=== PATIENT | female | born 1965 | race Caucasian/White ===

== ENCOUNTER 2016-07-14 13:57 | Emergency (ER) | payer OTHER ==
[~2016-07-14] VITALS: Ht 172.7 cm; Wt 111.0 kg
[~2016-07-14 13:57] MED LIST: ATOR10 PO; CIPR500T4 PO; IBUP600T26 PO; OMEP20TA39 PO; VITA5000 PO
[2016-07-14 14:07] VITALS: BP 154/86; PULSE 85; RESP 16; TEMP 98; O2SAT 97
[2016-07-14] MEDS ORDERED: SODIUM CHLOR 0.9% 1000 ML INJ 1,000 ML IV SCH (14:32)
--- NOTE | 2016-07-14 14:37 | PD ---
HPI Chief Complaint: GI Complaint Time Seen by Provider: 14:22 Travel History International Travel<30 days: No Contact w/Intl Traveler<30days: No Traveled to known affect area: No History of Present Illness HPI 51-year-old female here for evaluation of left lower quadrant abdominal pain/ left groin pain and rectal pressure. Symptoms have been intermittent for the last several months, worse over the last 6 days. The pain in her left lower quadrant is described as sharp/stabbing, moderate, severe at times, worse with movement and palpation. Patient has had several abdominal surgeries including section, hysterectomy, 2 inguinal hernia repairs on the left, one inguinal hernia repair on the right, perforated bowel during a lysis of adhesion procedure with partial colon resection and reanastomosis at that time. She denies fevers or chills. No nausea or vomiting. She has had normal bowel movements. No urinary symptoms. The patient also reports feeling pressure in her rectum. She denies melena or hematochezia. PFSH Past Medical History Arthritis: Yes Asthma: No Autoimmune Disease: No Heart Rhythm Problems: Yes Cancer: No Cardiovascular Problems: No High Cholesterol: Yes Chemotherapy: No Chest Pain: No Congestive Heart Failure: No COPD: No Cerebrovascular Accident: No Diabetes: No Diminished Hearing: No Endocrine: No Gastrointestinal Disorders: No GERD: Yes Gout: Yes Genitourinary: No Headaches: No Hiatal Hernia: No Hypertension: No Immune Disorder: No Implanted Vascular Access Dvce: No Kidney Stones: No Musculoskeletal: Yes (NECK,BACK) Neurologic: Yes (CHRONIC BACK PAIN) Psychiatric: No Reproductive: No Respiratory: No Immunizations Current: Yes Migraines: No Radiation Therapy: No Renal Failure: No Seizures: No Sickle Cell Disease: No Sleep Apnea: Yes Thyroid Disease: No Ulcer: No ?: Not : 1 Para: 1 Ovarian Cysts: Yes Past Surgical History Abdominal Surgery: Yes (HERNIA REPAIR X 2 LEFT SIDE, RIGHT X 1, LAP FOR SCAR TISSUE ) AICD: No Arteriovenous Shunt: No Body Medical Devices: gout Cardiac Surgery: No Section: Yes Ear Surgery: No Endocrine Surgery: No Eye Surgery: No Gynecologic Surgery: Yes (OVARIAN CYST REMOVED, HYSTERECTOMY 05/15) Hysterectomy: Yes Insulin Pump: No Joint Replacement: No Oral Surgery: No Pacemaker: No Thoracic Surgery: No Tonsillectomy: Yes Other Surgery: Yes (COLON RUPTURE REPAIR) Social History Alcohol Use: No Tobacco Use: No (STATES QUIT AUGUST 2013) Substance Use: No Allergies-Medications (Allergen,Severity, Reaction): Coded Allergies: Penicillin (Verified Allergy, Severe, HIVES, 07/14/16) Reported Meds & Prescriptions Reported Meds & Active Scripts Active Ibuprofen 600 Mg Tab 600 Mg PO Q8H PRN Cipro (Ciprofloxacin HCl) 500 Mg Tab 500 Mg PO BID 7 Days Reported Hm Omeprazole (Omeprazole) 20 Mg Tab 40 Mg PO DAILY Vitamin D-3 (Cholecalciferol) 5,000 Unit Tab 50,000 Unit PO MON AND FRI Lipitor (Atorvastatin Calcium) 10 Mg Tab 40 Mg PO DAILY Review of Systems Except as stated in HPI: all other systems reviewed are Neg Physical Exam Narrative GENERAL: Well-developed, well-nourished, overweight, comfortable, no acute distress. SKIN: Warm and dry. Several well-healed surgical scars over anterior abdomen and inguinal region. HEAD: Atraumatic. Normocephalic. EYES: Pupils equal and round. No scleral icterus. No injection or drainage. ENT: Mucous membranes pink and moist. NECK: Trachea midline. No JVD. CARDIOVASCULAR: Regular rate and rhythm. No murmur appreciated. RESPIRATORY: No accessory muscle use. Clear to auscultation. Breath sounds equal bilaterally. GASTROINTESTINAL: Skin exam as above. Abdomen soft, nondistended. Moderate left lower quadrant tenderness without peritoneal signs. Rest of abdomen is nontender. Normal bowel sounds. RECTUM: Exam performed in the presence of a female nurse. No masses, no fissures, no hemorrhoids. No fluctuance. MUSCULOSKELETAL: No obvious deformities. No clubbing. No cyanosis. No edema. NEUROLOGICAL: Awake and alert. No obvious cranial nerve deficits. Motor grossly within normal limits. Normal speech. PSYCHIATRIC: Appropriate mood and affect; insight and judgment normal. Data Data Last Documented VS Vital Signs Date Time Temp Pulse Resp B/P Pulse Ox O2 Delivery O2 Flow Rate FiO2 07/14/16 16:02 62 16 116/64 97 Room Air 07/14/16 14:07 98.0 Orders Complete Blood Count With Diff (07/14/16 14:32) Comprehensive Metabolic Panel (07/14/16 14:32) Lipase (07/14/16 14:32) Prothrombin Time / Inr (Pt) (07/14/16 14:32) Act Partial Throm Time (Ptt) (07/14/16 14:32) Urinalysis - C+S If Indicated (07/14/16 14:32) Ct Abd/Pel W Iv Contrast(Rout) (07/14/16 14:32) Iv Access Insert/Monitor (07/14/16 14:32) Ecg Monitoring (07/14/16 14:32) Oximetry (07/14/16 14:32) Morphine Inj (Morphine Inj) (07/14/16 14:45) Ondansetron Inj (Zofran Inj) (07/14/16 14:45) Sodium Chlor 0.9% 1000 Ml Inj (Ns 1000 M (07/14/16 14:32) Sodium Chloride 0.9% Flush (Ns Flush) (07/14/16 14:45) Iohexol 350 Inj (Omnipaque 350 Inj) (07/14/16 15:50) Morphine Inj (Morphine Inj) (07/14/16 16:30) Phenazopyridine (Pyridium) (07/14/16 16:30) Labs Laboratory Tests Test 07/14/16 14:45 White Blood Count 10.4 TH/MM3 Red Blood Count 4.62 MIL/MM3 Hemoglobin 13.6 GM/DL Hematocrit 41.4 % Mean Corpuscular Volume 89.5 FL Mean Corpuscular Hemoglobin 29.5 PG Mean Corpuscular Hemoglobin 32.9 % Concent Red Cell Distribution Width 12.8 % Platelet Count 282 TH/MM3 Mean Platelet Volume 8.5 FL Neutrophils (%) (Auto) 79.1 % Lymphocytes (%) (Auto) 15.4 % Monocytes (%) (Auto) 3.4 % Eosinophils (%) (Auto) 0.7 % Basophils (%) (Auto) 1.4 % Neutrophils # (Auto) 8.2 TH/MM3 Lymphocytes # (Auto) 1.6 TH/MM3 Monocytes # (Auto) 0.4 TH/MM3 Eosinophils # (Auto) 0.1 TH/MM3 Basophils # (Auto) 0.1 TH/MM3 CBC Comment DIFF FINAL Differential Comment Prothrombin Time 10.7 SEC Prothromb Time International 1.0 RATIO Ratio Activated Partial 24.3 SEC Thromboplast Time Urine Collection Type CLEAN CATCH Urine Color YELLOW Urine Turbidity CLEAR Urine pH 5.5 Urine Specific [place] 1.024 Urine Protein NEG mg/dL Urine Glucose (UA) NEG mg/dL Urine Ketones NEG mg/dL Urine Occult Blood MOD Urine Nitrite NEG Urine Bilirubin NEG Urine Leukocyte Esterase NEG Urine RBC 10-14 /hpf Urine WBC 3-5 /hpf Urine Squamous Epithelial 6-8 /hpf Cells Urine Bacteria OCC /hpf Urine Mucus FEW /lpf Microscopic Urinalysis Comment CULT NOT INDICATED Urine Collection Time 14:45 Sodium Level 141 MEQ/L Potassium Level 3.8 MEQ/L Chloride Level 105 MEQ/L Carbon Dioxide Level 28.1 MEQ/L Anion Gap 8 MEQ/L Blood Urea Nitrogen 20 MG/DL Creatinine 0.96 MG/DL Estimat Glomerular Filtration 61 ML/MIN Rate Random Glucose 136 MG/DL Calcium Level 8.6 MG/DL Total Bilirubin 0.4 MG/DL Aspartate Amino Transf 18 U/L (AST/SGOT) Alanine Aminotransferase 46 U/L (ALT/SGPT) Alkaline Phosphatase 50 U/L Total Protein 7.2 GM/DL Albumin 3.6 GM/DL Lipase 221 U/L MDM Medical Decision Making Medical Screen Exam Complete: Yes Emergency Medical Condition: Yes Medical Record Reviewed: Yes Differential Diagnosis Diverticulitis, colitis, UTI, cystitis, inguinal hernia, mesenteric ischemia, adhesions, musculoskeletal pain, Narrative Course Vital signs show heart rate 85, blood pressure 154/86, pulse ox 97% on room air , oral temp of 98F. CBC is unremarkable. CMP is unremarkable. Lipase is 221. UA shows moderate occult blood, 10-14 RBCs, 6-8 squamous epithelial cells, occasional bacteria, few mucus, negative nitrites, negative leukocyte esterase, culture not indicated CT abdomen pelvis: CONCLUSION: 1. No acute findings. 2. Hepatomegaly and hepatic steatosis. 3. Atherosclerosis. Patient was made aware of all findings and was provided a copy of all labs and CT abdomen pelvis report. She had some relief with morphine, however her pain seems to be returning. She tells me that she has always had blood in her urine. She could have an interstitial cystitis that is causing her pain. I will give her a prescription for pyridium. She also tells me that she knows that she has an enlarged/fatty liver which is being followed by psychiatric tech. As far as her pelvic/abdominal pain goes, she has had a total abdominal hysterectomy. She does not have any vaginal discharge. She has had several abdominal surgeries and has had a procedure for lysis of adhesions. Her pain could be from adhesions. She is stable for discharge home with outpatient follow-up with a primary care physician this week. She tells me she will contact her primary care physician tomorrow. I will give her the name of the urologist integration engineer with whom to follow-up with as well for her hematuria. She was informed on when to return to the emergency department. She verbalizes understanding and agreement with plan. Diagnosis Primary Impression: Abdominal pain Qualified Code: R10.9 - Abdominal pain, unspecified location Additional Impression: Hematuria Referrals: Pernell Noble MD 1 week Urologist Primary Care Physician 3 days Additional Instructions: Follow-up with your primary care physician this week. Follow-up with urologist Dr. Noble or a urologist of your choice this week regarding the blood in urine. Return to the emergency department for worsening symptoms or any other concerns as discussed. Scripts Phenazopyridine (Pyridium)200 Mg [id number] Mg PO Q8H PRN (DYSURIA) #20 TAB Ref 0 Prov:Mike Bragg MD 07/14/16 Oxycodone-Acetaminophen (Percocet)10-325 mg Tab1 Tab PO Q6H PRN (PAIN) #15 TAB Ref 0 Prov:Mike Bragg MD 07/14/16 Disposition: 01 DISCHARGE HOME Condition: Stable Mike Bragg MD Jul 14, 2016 14:37
[2016-07-14] MEDS ORDERED: SODIUM CHLORIDE 0.9% FLUSH 5 ML FLUSH IVF PRN (14:45)
[2016-07-14] MEDS ORDERED: ONDANSETRON HCL 4 MG/2 ML VIAL IVP ONE (14:45)
[2016-07-14] MEDS ORDERED: MORPHINE SULFATE 4 MG/ML INJ IV PUSH ONE ×2 (14:45→16:30)
[2016-07-14 14:56] LABS: GLUCOSE,URINE NEG (NEG); KETONE, URINE NEG (NEG); NITRITE,URINE NEG (NEG); PH, URINE 5.5 (5.0-8.5)
[2016-07-14 14:59] LABS: AUTOMATED NEUTROPHIL # 8.2 TH/MM3 (1.8-7.7); BASOPHIL # 0.1 TH/MM3 (0-0.2); BASOPHIL % 1.4 % (0.0-2.0); EOSINOPHIL # 0.1 TH/MM3 (0-0.4); EOSINOPHIL % 0.7 % (0.0-4.0); HEMATOCRIT 41.4 % (35.0-46.0); HEMO FLAGS DIFF FINAL; LYMPH % 15.4 % (9.0-44.0); LYMPHOCYTE # 1.6 TH/MM3 (1.0-4.8); MEAN CELL VOLUME 89.5 FL (80.0-100.0); MEAN CORPUSCULAR HEMOGLOBIN 29.5 PG (27.0-34.0); MEAN CORPUSCULAR HGB CONC 32.9 % (32.0-36.0); MONO % 3.4 % (0.0-8.0); NEUT % 79.1 % (16.0-70.0); PLATELET COUNT 282 TH/MM3 (150-450); RED BLOOD COUNT 4.62 MIL/MM3 (4.00-5.30); RED CELL DISTRIBUTION WIDTH 12.8 % (11.6-17.2); WHITE BLOOD COUNT 10.4 TH/MM3 (4.0-11.0)
[2016-07-14 15:00] VITALS: RESP 16; O2SAT 97
[2016-07-14 15:02] VITALS: BP 114/75; PULSE 67; RESP 16; O2SAT 97
[2016-07-14 15:07] LABS: CHLORIDE 105 MEQ/L (98-107); POTASSIUM 3.8 MEQ/L (3.5-5.1); SODIUM (NA) 141 MEQ/L (136-145)
[2016-07-14 15:11] LABS: ANION GAP 8 MEQ/L (5-15); BICARBONATE 28.1 MEQ/L (21.0-32.0); BLOOD UREA NITROGEN 20 MG/DL (7-18); BLOOD, URINE MOD (NEG); METHOD OF COLLECTION CLEAN CATCH; URINE COLOR YELLOW (YELLW/STRAW)
[2016-07-14 15:12] LABS: APTT (PATIENT) 24.3 SEC (24.3-30.1); PROTHROMBIN TIME - PATIENT 10.7 SEC (9.8-11.6)
[2016-07-14 15:13] LABS: ALT (GPT) 46 U/L (10-53); AST (GOT) 18 U/L (15-37); BACTERIA, URINE OCC /hpf; COMMENT (UR) CULT NOT INDICATED; CULTURE IF INDICATED CULT NOT INDICATED; GLOMERULAR FILTRATION RATE 61 ML/MIN (>89); MUCUS URINE FEW /lpf (OCC)
[2016-07-14 15:15] LABS: TOTAL BILIRUBIN ADULT 0.4 MG/DL (0.2-1.0)
[2016-07-14 15:16] LABS: ALKALINE PHOSPHATASE 50 U/L (45-117)
[2016-07-14] MEDS ORDERED: IOHEXOL 350 MG/ML 10 ML VIAL (for RAD DIAG) IV ONE (15:50)
--- NOTE | 2016-07-14 15:59 | RADHPO ---
EXAM DATE/TIME: 07/14/2016 15:33 [facility] COMPARISON: US ABDOMEN - GALLBLADDER, January 04, 2015, 8:56. INDICATIONS : Lower pelvic pain. IV CONTRAST: 67 cc Omnipaque 350 (iohexol) IV ORAL CONTRAST: No oral contrast ingested. RADIATION DOSE: 21.97 CTDIvol (mGy) MEDICAL HISTORY : None SURGICAL HISTORY : Hysterectomy. Inguinal hernia repair. ENCOUNTER: Initial ACUITY: 1 day PAIN SCALE: 3/10 LOCATION: Abdomen. TECHNIQUE: Volumetric scanning of the abdomen and pelvis was performed. Using automated exposure control and ad justment of the mA and/or kV according to patient size, radiation dose was kept as low as reasonably achievable to obtain optimal diagnostic quality images. FINDINGS: There is fatty infiltration of the liver and hepatomegaly. Gallbladder, spleen, pancreas, bilateral a drenal glands, bilateral kidneys are normal in appearance. Atherosclerotic calcifications of the aort a and iliac vessels are seen. Urinary bladder unremarkable. The patient has had previous left inguina l hernia repair. No evidence of bowel obstruction. Appendix normal. Patient is status post hysterecto my. No adnexal masses. No inflammatory changes are seen. There are surgical clips in the retroperiton eum. Osseous structures demonstrate previous intervertebral fusion at L4-5 and L5-S1 with degenerativ e disc disease. Lung bases are clear. CONCLUSION: 1. No acute findings. 2. Hepatomegaly and hepatic steatosis. 3. Atherosclerosis. Mars Booker MD on July 14, 2016 at 15:56 Board Certified Radiologist. This report was verified electronically.
[2016-07-14 16:02] VITALS: BP 116/64; PULSE 62; RESP 16; O2SAT 97
[2016-07-14] MEDS ORDERED: PHENAZOPYRIDINE HCL 200 MG TAB PO ONE (16:30)
[2016-07-14] MEDS ORDERED: PERC10TA27 PO (16:41)
[2016-07-14] MEDS ORDERED: PYRI200T4 PO ×2 (16:41→16:45)
[2016-07-14 17:02] VITALS: BP 122/75; PULSE 64; RESP 16; O2SAT 98
== END 2016-07-14 17:14 | disposition home or self-care (01) ==
LOC: PHED 13:57
DX: R10.32 Left lower quadrant pain (principal); R31.9 Hematuria, unspecified; E78.00 Pure hypercholesterolemia, unspecified; K21.9 Gastro-esophageal reflux disease without esophagitis
CPT/HCPCS: 74177; 80053; 81001; 83690; 85025; 85610; 85730; 96361; 96374; 96375; 96376; 99284; J2270; J2405; J7030; Q9967

== ENCOUNTER 2016-09-10 12:25 | Emergency (ER) | payer OTHER ==
[~2016-09-10] VITALS: Ht 172.7 cm; Wt 106.0 kg
[~2016-09-10 12:25] MED LIST changes: +PERC10TA27 PO; +PYRI200T4 PO
[2016-09-10 12:27] VITALS: BP 169/97; PULSE 97; RESP 17; TEMP 98.4; O2SAT 99
--- NOTE | 2016-09-10 12:37 | PD ---
Physical Exam Time Seen by Provider: 12:35 Narrative 51 y/o female with known hernia presents after tripping on the stairs 2 days ago. She complains of lower abdominal pain since then. Tearing pain. VSS Seen at triage desk. Awaiting bed placement. Data Data Last Documented VS Vital Signs Date Time Temp Pulse Resp B/P Pulse Ox O2 Delivery O2 Flow Rate FiO2 09/10/16 12:27 98.4 97 17 169/97 99 MDM Medical Record Reviewed: Yes Supervised Visit with DEBBIE: No Ranulfo Faustin September 10, 2016 12:36
[2016-09-10] MEDS ORDERED: IBUP800T23 PO (13:18)
[2016-09-10] MEDS ORDERED: CYCL1TAB29 PO (13:18)
[2016-09-10] MEDS ORDERED: PERC5TAB12 PO (13:19)
--- NOTE | 2016-09-10 13:19 | PD ---
HPI Chief Complaint: Abdominal Pain Time Seen by Provider: 13:08 Travel History International Travel<30 days: No Contact w/Intl Traveler<30days: No Traveled to known affect area: No History of Present Illness HPI Patient is a 51-year-old female presented to the emergency department for evaluation of lower abdominal pain. Patient states that she tripped Friday falling up the stairs. When she tripped she felt something "rip"open and her lower abdomen. She reports having 2 left inguinal hernia repairs and one right inguinal hernia repair. She believes the fall has caused a new herniation and presents for evaluation. Patient states that she was evaluated by Dr. Sal cochran her surgeon a week ago and per her report he did not believe that she had a new hernia and her left groin, she states that he told her she had adhesions. She denies any dysuria, back pain, nausea, vomiting, other injuries related to the fall. She reports her pain is 8 out of 10. PFSH Past Medical History Arthritis: Yes Asthma: No Autoimmune Disease: No Heart Rhythm Problems: Yes Cancer: No Cardiovascular Problems: No High Cholesterol: Yes Chemotherapy: No Chest Pain: No Congestive Heart Failure: No COPD: No Cerebrovascular Accident: No Diabetes: No Diminished Hearing: No Endocrine: No Gastrointestinal Disorders: Yes (GERD, HERNIA) GERD: Yes Gout: Yes Genitourinary: No Headaches: No Hiatal Hernia: Yes Hypertension: No Immune Disorder: No Implanted Vascular Access Dvce: No Kidney Stones: No Medical other: Yes (FATTY LIVER) Musculoskeletal: Yes (NECK,BACK) Neurologic: Yes (CHRONIC BACK PAIN) Psychiatric: No Reproductive: No Respiratory: No Immunizations Current: Yes Migraines: No Radiation Therapy: No Renal Failure: No Seizures: No Sickle Cell Disease: No Sleep Apnea: Yes Thyroid Disease: No Ulcer: No ?: Not : 1 Para: 1 Ovarian Cysts: Yes Past Surgical History Abdominal Surgery: Yes (HERNIA REPAIR X 2 LEFT SIDE, RIGHT X 1, LAP FOR SCAR TISSUE ) AICD: No Arteriovenous Shunt: No Body Medical Devices: gout Cardiac Surgery: No Section: Yes Ear Surgery: No Endocrine Surgery: No Eye Surgery: No Gynecologic Surgery: Yes (OVARIAN CYST REMOVED, HYSTERECTOMY 05/15) Hysterectomy: Yes Insulin Pump: No Joint Replacement: No Oral Surgery: No Pacemaker: No Thoracic Surgery: No Tonsillectomy: Yes Other Surgery: Yes (COLON RUPTURE REPAIR) Social History Alcohol Use: No Tobacco Use: No (STATES QUIT AUGUST 2013) Substance Use: No Allergies-Medications (Allergen,Severity, Reaction): Coded Allergies: Penicillin (Verified Allergy, Severe, HIVES, 09/10/16) Reported Meds & Prescriptions Reported Meds & Active Scripts Active Pyridium (Phenazopyridine HCl) 200 Mg Tab 200 Mg PO Q8H PRN Percocet (Oxycodone-Acetaminophen) 10-325 mg Tab 1 Tab PO Q6H PRN Ibuprofen 600 Mg Tab 600 Mg PO Q8H PRN Cipro (Ciprofloxacin HCl) 500 Mg Tab 500 Mg PO BID 7 Days Reported Hm Omeprazole (Omeprazole) 20 Mg Tab 40 Mg PO DAILY Vitamin D-3 (Cholecalciferol) 5,000 Unit Tab 50,000 Unit PO MON AND FRI Lipitor (Atorvastatin Calcium) 10 Mg Tab 40 Mg PO DAILY Review of Systems Except as stated in HPI: all other systems reviewed are Neg HENT: No: Headaches, Neck Pain Cardiovascular: No: Chest Pain or Discomfort Respiratory: No: Shortness of Breath Gastrointestinal: Positive: Abdominal Pain, No: Nausea, Vomiting Musculoskeletal: Positive: Myalgias, Pain Neurologic: No: Dizziness, Focal Abnormalities Physical Exam Narrative GENERAL: Overweight, well-developed, alert female. Resting comfortably in no acute distress. SKIN: Focused skin assessment warm/dry. HEAD: Atraumatic. Normocephalic. EYES: Pupils equal and round. No scleral icterus. No injection or drainage. ENT: No nasal bleeding or discharge. Mucous membranes pink and moist. NECK: Trachea midline. No JVD. CARDIOVASCULAR: Regular rate and rhythm. No murmur appreciated. RESPIRATORY: No accessory muscle use. Clear to auscultation. Breath sounds equal bilaterally. GASTROINTESTINAL: Abdomen soft, non-tender, nondistended. Hepatic and splenic margins not palpable. Left lower abdomen over previous incision site there is a palpable firm area that is noticeable when patient is standing. No herniations noted otherwise. MUSCULOSKELETAL: No obvious deformities. No clubbing. No cyanosis. No edema. NEUROLOGICAL: Awake and alert. No obvious cranial nerve deficits. Motor grossly within normal limits. Normal speech. PSYCHIATRIC: Appropriate mood and affect; insight and judgment normal. Data Data Last Documented VS Vital Signs Date Time Temp Pulse Resp B/P Pulse Ox O2 Delivery O2 Flow Rate FiO2 09/10/16 12:52 18 09/10/16 12:27 98.4 97 169/97 99 [facility] Medical Decision Making Medical Screen Exam Complete: Yes Emergency Medical Condition: Yes Interpretation(s) Vital Signs Date Time Temp Pulse Resp B/P Pulse Ox O2 Delivery O2 Flow Rate FiO2 09/10/16 12:52 18 09/10/16 12:27 98.4 97 17 169/97 99 Differential Diagnosis Muscle strain versus spasm versus adhesions versus hernia versus other Narrative Course Patient is a 51-year-old female presenting to emergency department for evaluation of abdominal pain after tripping and falling upstairs on Friday evening. Abdominal exam is benign, she had a previous workup for a similar complaint on July 14, 2016. At that time there was a CT of the abdomen and pelvis which showed no acute abnormalities, or herniation. Presentation today appears most consistent with a muscle strain. Patient was given prescriptions for a short course of pain medication as well as a muscle relaxer. She is encouraged follow-up with her primary care provider and if needed she can follow up with Dr. Cochran. Patient verbalized understanding of instructions. The patient is stable for discharge. Diagnosis Primary Impression: Strain of abdominal wall Qualified Code: S39.011A - Strain of abdominal wall, initial encounter Referrals: Sal Cochran MD Primary Care Physician Patient Instructions: General Instructions, Muscle Strain (ED) Additional Instructions: Take medications as directed Do not drive or operate machinery while taking narcotic pain medication Follow-up with her primary care provider and/or Dr. Cochran if needed Return to emergency department for any new or worsening symptoms Med/Other Pt SpecificInfo: Prescription(s) given Scripts Ibuprofen 800 Mg [id number] Mg PO Q8H PRN (Pain/Inflammation) 10 Days Ref 0 Prov:Meredith Cobb 09/10/16 Cyclobenzaprine (Flexeril)10 Mg Tab10 Mg PO TID PRN (MUSCLE SPASM) 7 Days Ref 0 Prov:Meredith Cobb 09/10/16 Disposition: 01 DISCHARGE HOME Condition: Stable Meredith Cobb September 10, 2016 13:19
== END 2016-09-10 13:29 | disposition home or self-care (01) ==
LOC: NEPD 12:25
DX: S39.011A Strain of muscle, fascia and tendon of abdomen, initial encounter (principal); E78.00 Pure hypercholesterolemia, unspecified; G47.30 Sleep apnea, unspecified; Z87.39 Personal history of other diseases of the musculoskeletal system and connective tissue; Z86.79 Personal history of other diseases of the circulatory system; Z87.19 Personal history of other diseases of the digestive system; Z87.891 Personal history of nicotine dependence; W10.9XXA Fall (on) (from) unspecified stairs and steps, initial encounter
CPT/HCPCS: 99283

== ENCOUNTER 2017-06-30 16:14 | Emergency (ER) | payer OTHER ==
[~2017-06-30] VITALS: Ht 172.7 cm; Wt 110.4 kg
[~2017-06-30 16:14] MED LIST changes: +CYCL10TA PO; +IBUP1TAB7 PO; +PERC5TAB12 PO
[2017-06-30 16:17] VITALS: BP 145/64; PULSE 95; RESP 16; TEMP 99.2; O2SAT 98
--- NOTE | 2017-06-30 16:31 | PD ---
HPI Chief Complaint: GI Complaint Time Seen by Provider: 16:30 Travel History International Travel<30 days: No Contact w/Intl Traveler<30days: No Traveled to known affect area: No History of Present Illness HPI 52-year-old female came to the emergency room with history of profound diarrhea for past 2 days. Patient says that the diarrhea has been nonstop. Every time she eats or drinks something it just comes out. Right now is watery. Nonbloody. No history of vomiting. She has been getting some chills occasionally. She has been dizzy and seeing white spots in front of her eyes when she stands up. Vital signs were relatively stable. [facility] Past Medical History Narrative Medical Risk of her past medical, surgical, social and family history is reviewed from the nursing note. Arthritis: Yes Asthma: No Autoimmune Disease: No Heart Rhythm Problems: Yes Cancer: No Cardiovascular Problems: No High Cholesterol: Yes Chemotherapy: No Chest Pain: No Congestive Heart Failure: No COPD: No Cerebrovascular Accident: No Diabetes: No (METFORMIN) Diminished Hearing: No Endocrine: No Gastrointestinal Disorders: Yes (GERD, HERNIA) GERD: Yes Gout: Yes Genitourinary: No Headaches: No Hiatal Hernia: Yes Hypertension: No Immune Disorder: No Implanted Vascular Access Dvce: No Kidney Stones: No Musculoskeletal: Yes (NECK,BACK) Neurologic: Yes (CHRONIC BACK PAIN) Psychiatric: No Reproductive: No Respiratory: No Immunizations Current: Yes Migraines: No Radiation Therapy: No Renal Failure: No Seizures: No Sickle Cell Disease: No Sleep Apnea: Yes Thyroid Disease: No Ulcer: No : 1 Para: 1 Ovarian Cysts: Yes Past Surgical History Abdominal Surgery: Yes (HERNIA REPAIR X 2 LEFT SIDE, RIGHT X 1, LAP FOR SCAR TISSUE ) AICD: No Arteriovenous Shunt: No Body Medical Devices: gout Cardiac Surgery: No Section: Yes Ear Surgery: No Endocrine Surgery: No Eye Surgery: No Gynecologic Surgery: Yes (OVARIAN CYST REMOVED, HYSTERECTOMY 05/15) Hysterectomy: Yes Insulin Pump: No Joint Replacement: No Oral Surgery: No Pacemaker: No Thoracic Surgery: No Tonsillectomy: Yes Other Surgery: Yes (COLON RUPTURE REPAIR) Social History Alcohol Use: No Tobacco Use: No (STATES QUIT AUGUST 2013) Substance Use: No Allergies-Medications (Allergen,Severity, Reaction): Coded Allergies: penicillin G (Unverified Allergy, Severe, HIVES, 07/03/17) Comments List of allergies reviewed from the nursing note. Reported Meds & Prescriptions Reported Meds & Active Scripts Active Bactrim DS (Sulfamethoxazole-Trimethoprim) 800-160 Mg Tab 1 Tab PO BID 3 Days Metformin ER (Metformin HCl) 500 Mg Yoshi 500 Mg PO WITH DINNER 30 Days With evening meal Cholestyramine 4 Gm/Pkt Powd 4 Gm PO Q12HR 15 Days 1 packet contains 4 grams of cholestyramine. Flagyl (Metronidazole) 500 Mg Tab 500 Mg PO Q8HR 6 Days Cipro (Ciprofloxacin HCl) 500 Mg Tab 500 Mg PO BID 6 Days Reported Pantoprazole (Pantoprazole Sodium) 40 Mg Tab 40 Mg PO DAILY Narrative Medication List of her home medications reviewed from the nursing note. Review of Systems Except as stated in HPI: all other systems reviewed are Neg Gastrointestinal: Positive: Diarrhea Neurologic: Positive: Dizziness Physical Exam Narrative GENERAL: Awake, alert, moderate distress, anxious SKIN: Focused skin assessment warm/dry. HEAD: Atraumatic. Normocephalic. EYES: Pupils equal and round. No scleral icterus. No injection or drainage. ENT: No nasal bleeding or discharge. Dry mucous membrane. NECK: Trachea midline. No JVD. CARDIOVASCULAR: Regular rate and rhythm. No murmur appreciated. RESPIRATORY: No accessory muscle use. Clear to auscultation. Breath sounds equal bilaterally. GASTROINTESTINAL: Abdomen soft, non-tender, nondistended. Hepatic and splenic margins not palpable. MUSCULOSKELETAL: No obvious deformities. No clubbing. No cyanosis. No edema. NEUROLOGICAL: Awake and alert. No obvious cranial nerve deficits. Motor grossly within normal limits. Normal speech. PSYCHIATRIC: Appropriate mood and affect; insight and judgment normal. Data Data Last Documented VS Orders Orders Basic Metabolic Panel (Bmp) (06/30/17 16:35) Complete Blood Count With Diff (06/30/17 16:35) Iv Access Insert/Monitor (06/30/17 16:35) Ecg Monitoring (06/30/17 16:35) Oximetry (06/30/17 16:35) Sodium Chlor 0.9% 1000 Ml Inj (Ns 1000 M (06/30/17 16:35) Sodium Chloride 0.9% Flush (Ns Flush) (06/30/17 16:45) C Diff Toxin Pcr (06/30/17 16:35) Influenzae A/B Antigen (06/30/17 17:10) Ondansetron Inj (Zofran Inj) (06/30/17 17:15) Acetaminophen (Tylenol) (06/30/17 17:15) Diphenoxylate/Atropine Tab (Lomotil Tab) (06/30/17 18:00) Ed Discharge Order (06/30/17 17:51) Labs Laboratory Tests Test 06/30/17 16:48 06/30/17 17:00 White Blood Count 4.5 TH/MM3 Red Blood Count 5.07 MIL/MM3 Hemoglobin 14.6 GM/DL Hematocrit 44.6 % Mean Corpuscular Volume 88.0 FL Mean Corpuscular Hemoglobin 28.8 PG Mean Corpuscular Hemoglobin Concent 32.7 % Red Cell Distribution Width 12.3 % Platelet Count 255 TH/MM3 Mean Platelet Volume 8.1 FL Neutrophils (%) (Auto) 58.4 % Lymphocytes (%) (Auto) 28.8 % Monocytes (%) (Auto) 10.7 % Eosinophils (%) (Auto) 1.1 % Basophils (%) (Auto) 1.0 % Neutrophils # (Auto) 2.7 TH/MM3 Lymphocytes # (Auto) 1.3 TH/MM3 Monocytes # (Auto) 0.5 TH/MM3 Eosinophils # (Auto) 0.0 TH/MM3 Basophils # (Auto) 0.0 TH/MM3 CBC Comment DIFF FINAL Differential Comment Blood Urea Nitrogen 18 MG/DL Creatinine 0.86 MG/DL Random Glucose 105 MG/DL Calcium Level 8.6 MG/DL Sodium Level 139 MEQ/L Potassium Level 3.7 MEQ/L Chloride Level 107 MEQ/L Carbon Dioxide Level 26.5 MEQ/L Anion Gap 6 MEQ/L Estimat Glomerular Filtration Rate 69 ML/MIN Stool C. difficile Toxin (PCR) NEGATIVE Stl C. difficile Toxin Epiderm 027 PRESUMPTIVE NEGATIVE MDM Medical Decision Making Medical Screen Exam Complete: Yes Emergency Medical Condition: Yes Medical Record Reviewed: Yes Differential Diagnosis Diarrhea, dehydration, electrolyte abnormality Narrative Course 4:54 PM awaiting for the blood test results. Patient is getting IV fluid bolus. 5:39 PM blood test results of back and within normal limits. Stool for C. difficile is pending. Rapid Influenza test is pending as well. Patient will be discharged home eventually. Procedures EKG Prior to Arrival: No Diagnosis Primary Impression: Diarrhea Qualified Codes: R19.7 - Diarrhea, unspecified Additional Impression: Viral illness Referrals: Primary Care Physician Additional Instructions: Eat Khang diet that includes banana, rice, applesauce, tea and toast. Take the medication as per the prescription direction. Return to the ER if condition worsens or any other new concerns. Otherwise follow-up with your primary care. Med/Other Pt SpecificInfo: Prescription(s) given Disposition: 01 DISCHARGE HOME Condition: Stable Germain Isabel MD Jun 30, 2017 16:31
[2017-06-30] MEDS ORDERED: SODIUM CHLOR 0.9% 1000 ML INJ 1,000 ML IV SCH (16:35)
[2017-06-30] MEDS ORDERED: SODIUM CHLORIDE 0.9% FLUSH 10 ML FLUSH IV FLUSH PRN (16:45)
[2017-06-30 17:07] VITALS: O2SAT 96
[2017-06-30 17:15] LABS: BICARBONATE 26.5 MEQ/L (21.0-32.0); CALCIUM 8.6 MG/DL (8.5-10.1)
[2017-06-30] MEDS ORDERED: ACETAMINOPHEN 325 MG TAB PO ONE (17:15)
[2017-06-30] MEDS ORDERED: ONDANSETRON HCL 4 MG/2 ML VIAL IV PUSH ONE (17:15)
[2017-06-30] MEDS ORDERED: PANT40TA3 PO (17:18)
[2017-06-30] MEDS ORDERED: METF500T PO (17:18)
[2017-06-30 17:19] LABS: CREATININE 0.86 MG/DL (0.50-1.00)
[2017-06-30 17:26] LABS: AUTOMATED NEUTROPHIL # 2.7 TH/MM3 (1.8-7.7); EOSINOPHIL % 1.1 % (0.0-4.0); HEMATOCRIT 44.6 % (35.0-46.0); HEMOGLOBIN 14.6 GM/DL (11.6-15.3); LYMPH % 28.8 % (9.0-44.0); LYMPHOCYTE # 1.3 TH/MM3 (1.0-4.8); MEAN CORPUSCULAR HEMOGLOBIN 28.8 PG (27.0-34.0); MEAN CORPUSCULAR HGB CONC 32.7 % (32.0-36.0); MEAN PLATELET VOLUME 8.1 FL (7.0-11.0); MONO % 10.7 % (0.0-8.0); MONOCYTE # 0.5 TH/MM3 (0-0.9); NEUT % 58.4 % (16.0-70.0); PLATELET COUNT 255 TH/MM3 (150-450); RED BLOOD COUNT 5.07 MIL/MM3 (4.00-5.30); RED CELL DISTRIBUTION WIDTH 12.3 % (11.6-17.2); WHITE BLOOD COUNT 4.5 TH/MM3 (4.0-11.0)
[2017-06-30] MEDS ORDERED: LOMO2.5T PO (17:53)
[2017-06-30 18:00] VITALS: BP 140/89; PULSE 92; RESP 16; O2SAT 97
[2017-06-30] MEDS ORDERED: DIPHENOXYLATE/ATROPINE 2.5 MG/0.025 MG TAB PO ONE (18:00)
[2017-06-30 18:31] VITALS: BP 153/77
[2017-06-30 18:38] VITALS: RESP 16
== END 2017-06-30 18:49 | disposition home or self-care (01) ==
LOC: PHED 16:14
DX: R19.7 Diarrhea, unspecified (principal); B34.9 Viral infection, unspecified; E78.00 Pure hypercholesterolemia, unspecified; K21.9 Gastro-esophageal reflux disease without esophagitis; M19.90 Unspecified osteoarthritis, unspecified site; Z87.891 Personal history of nicotine dependence
CPT/HCPCS: 80048; 85025; 87493; 87804; 96361; 96374; 99284; J2405; J7030

== ENCOUNTER 2017-07-03 10:24 | Observation (INO) | payer OTHER ==
[~2017-07-03] VITALS: Ht 172.7 cm; Wt 111.0 kg
[~2017-07-03 10:24] MED LIST changes: -ATOR10 PO; -CIPR500T4 PO; -CYCL10TA PO; -IBUP1TAB7 PO; -IBUP600T26 PO; +LOMO2.5T PO; +METF500T PO; -OMEP20TA39 PO; +PANT40TA3 PO; -PERC10TA27 PO; -PERC5TAB12 PO; -PYRI200T4 PO; -VITA5000 PO
[2017-07-03] MEDS ORDERED: IOHEXOL 350 MG/ML 10 ML VIAL (for RAD DIAG) IVCONTRAST ONE (10:25)
[2017-07-03 10:26] VITALS: BP 138/73; PULSE 71; RESP 16; TEMP 98; O2SAT 99
--- NOTE | 2017-07-03 10:56 | PD ---
HPI Chief Complaint: GI Complaint Time Seen by Provider: 10:33 Travel History International Travel<30 days: No Contact w/Intl Traveler<30days: No Traveled to known affect area: No History of Present Illness HPI This 52-year-old female says she been having diarrhea since Friday. Friday she started having some fever and loose stools. Since then she's been having increasing diarrhea. She says she is passing yellow liquid per rectum. If she eats anything she says she has a bowel movement within 20 minutes. There has not been any vomiting. She was seen in the emergency department on the . At that time that test for C. difficile was done and was negative. She was given Lomotil and has taken 6 tablets at home. She says Lomotil has not helped. He says that in 2009 she had ischemic colitis. She had a perforation of her colon during a laparoscopic procedure. She has had back surgery done through her abdomen in the past. PFSH Past Medical History Arthritis: Yes Asthma: No Autoimmune Disease: No Heart Rhythm Problems: Yes Cancer: No Cardiovascular Problems: No High Cholesterol: Yes Chemotherapy: No Chest Pain: No Congestive Heart Failure: No COPD: No Cerebrovascular Accident: No Diabetes: Yes (METFORMIN) Patient Takes Glucophage: Yes Diminished Hearing: No Endocrine: No Gastrointestinal Disorders: Yes (GERD, HERNIA) GERD: Yes Gout: Yes Genitourinary: No Headaches: No Hiatal Hernia: Yes Heparin Induced Thrombocytopen: No Hypertension: No Immune Disorder: No Implanted Vascular Access Dvce: No Kidney Stones: No Musculoskeletal: Yes (NECK,BACK) Neurologic: Yes (CHRONIC BACK PAIN) Psychiatric: No Reproductive: No Respiratory: No Immunizations Current: Yes Migraines: No Radiation Therapy: No Renal Failure: No Seizures: No Sickle Cell Disease: No Sleep Apnea: Yes Thyroid Disease: No Ulcer: No ?: Not : 1 Para: 1 Ovarian Cysts: Yes Past Surgical History Abdominal Surgery: Yes (HERNIA REPAIR X 2 LEFT SIDE, RIGHT X 1, LAP FOR SCAR TISSUE ) AICD: No Arteriovenous Shunt: No Body Medical Devices: gout Cardiac Surgery: No Section: Yes Ear Surgery: No Endocrine Surgery: No Eye Surgery: No Gynecologic Surgery: Yes (OVARIAN CYST REMOVED, HYSTERECTOMY 05/15) Hysterectomy: Yes Insulin Pump: No Joint Replacement: No Oral Surgery: No Pacemaker: No Thoracic Surgery: No Tonsillectomy: Yes Other Surgery: Yes (COLON RUPTURE REPAIR) Social History Alcohol Use: No Tobacco Use: No (STATES QUIT AUGUST 2013) Substance Use: No Allergies-Medications (Allergen,Severity, Reaction): Coded Allergies: penicillin G (Unverified Allergy, Severe, HIVES, 07/03/17) Reported Meds & Prescriptions Reported Meds & Active Scripts Active Lomotil (Diphenoxylate-Atropine) 2.5-0.025 Mg Tab 1 Tab PO Q6H PRN Reported Metformin (Metformin HCl) 500 Mg Tab 500 Mg PO BIDPC Pantoprazole (Pantoprazole Sodium) 40 Mg Tab 40 Mg PO DAILY Review of Systems General / Constitutional: No: Fever, Chills Eyes: No: Diploplia, Blurred Vision HENT: No: Headaches, Vertigo Cardiovascular: No: Chest Pain or Discomfort, Palpitations Respiratory: No: Cough, Shortness of Breath Gastrointestinal: Positive: Diarrhea Genitourinary: No: Frequency Musculoskeletal: No: Myalgias, Arthralgias Skin: No Rash, No Itching Neurologic: Positive: Weakness, Dizziness, No: Syncope, Focal Abnormalities Endocrine: No: Heat Intolerance Hematologic/Lymphatic: No: Easy Bruising Physical Exam Narrative GENERAL: Well-developed female SKIN: Focused skin assessment warm/dry. HEAD: Atraumatic. Normocephalic. EYES: Pupils equal and round. No scleral icterus. No injection or drainage. ENT: No nasal bleeding or discharge. Mucous membranes pink and moist. NECK: Trachea midline. No JVD. CARDIOVASCULAR: Regular rate and rhythm. No murmur appreciated. RESPIRATORY: No accessory muscle use. Clear to auscultation. Breath sounds equal bilaterally. GASTROINTESTINAL: Abdomen soft, mild diffuse tenderness, no guarding, nondistended. Hepatic and splenic margins not palpable. MUSCULOSKELETAL: No obvious deformities. No clubbing. No cyanosis. No edema. NEUROLOGICAL: Awake and alert. No obvious cranial nerve deficits. Motor grossly within normal limits. Normal speech. PSYCHIATRIC: Appropriate mood and affect; insight and judgment normal. Data Data Last Documented VS Vital Signs Date Time Temp Pulse Resp B/P (MAP) Pulse Ox O2 Delivery O2 Flow Rate FiO2 07/03/17 11:50 68 125/79 (94) 100 07/03/17 10:26 98.0 16 Orders Orders Complete Blood Count With Diff (07/03/17 10:46) Comprehensive Metabolic Panel (07/03/17 10:46) Urinalysis - C+S If Indicated (07/03/17 10:46) Magnesium (Mg) (07/03/17 10:46) Rotavirus Ag Detection (Stool) (07/03/17 10:46) Enteric Path (Stool) (07/03/17 10:46) Ct Abd/Pel W Iv Contrast(Rout) (07/03/17 10:46) Stool Ova And Parasite Screen (07/03/17 10:46) Stool Wbc (Leukocytes) (07/03/17 10:46) Sodium Chlor 0.9% 1000 Ml Inj (Ns 1000 M (07/03/17 11:00) Sodium Chlor 0.9% 1000 Ml Inj (Ns 1000 M (07/03/17 11:00) Urine Culture (07/03/17 11:10) Potassium Chloride (Kcl) (07/03/17 11:45) Iohexol 350 Inj (Omnipaque 350 Inj) (07/03/17 10:25) Ns + Kcl Inj (07/03/17 13:00) Labs Laboratory Tests Test 07/03/17 11:10 White Blood Count 4.4 TH/MM3 Red Blood Count 4.67 MIL/MM3 Hemoglobin 13.8 GM/DL Hematocrit 41.0 % Mean Corpuscular Volume 87.7 FL Mean Corpuscular Hemoglobin 29.5 PG Mean Corpuscular Hemoglobin Concent 33.6 % Red Cell Distribution Width 12.3 % Platelet Count 251 TH/MM3 Mean Platelet Volume 7.8 FL Neutrophils (%) (Auto) 56.7 % Lymphocytes (%) (Auto) 35.3 % Monocytes (%) (Auto) 5.3 % Eosinophils (%) (Auto) 2.3 % Basophils (%) (Auto) 0.4 % Neutrophils # (Auto) 2.5 TH/MM3 Lymphocytes # (Auto) 1.6 TH/MM3 Monocytes # (Auto) 0.2 TH/MM3 Eosinophils # (Auto) 0.1 TH/MM3 Basophils # (Auto) 0.0 TH/MM3 CBC Comment DIFF FINAL Differential Comment Urine Collection Type CLEAN CATCH Urine Color YELLOW Urine Turbidity CLEAR Urine pH 5.5 Urine Specific [place] 1.025 Urine Protein NEG mg/dL Urine Glucose (UA) NEG mg/dL Urine Ketones NEG mg/dL Urine Occult Blood MOD Urine Nitrite NEG Urine Bilirubin NEG Urine Leukocyte Esterase TRACE Urine RBC 0-3 /hpf Urine WBC 3-5 /hpf Urine Squamous Epithelial Cells 0-5 /hpf Urine Bacteria MOD /hpf Urine Granular Casts 0-2 /lpf Urine Mucus MANY /lpf Microscopic Urinalysis Comment CULTURE INDICATED Blood Urea Nitrogen 18 MG/DL Creatinine 0.70 MG/DL Random Glucose 95 MG/DL Total Protein 7.5 GM/DL Albumin 3.5 GM/DL Calcium Level 8.4 MG/DL Magnesium Level 2.2 MG/DL Alkaline Phosphatase 71 U/L Aspartate Amino Transf (AST/SGOT) 48 U/L Alanine Aminotransferase (ALT/SGPT) 111 U/L Total Bilirubin 0.5 MG/DL Sodium Level 141 MEQ/L Potassium Level 3.5 MEQ/L Chloride Level 110 MEQ/L Carbon Dioxide Level 23.8 MEQ/L Anion Gap 7 MEQ/L Estimat Glomerular Filtration Rate 87 ML/MIN [facility] Medical Decision Making Medical Screen Exam Complete: Yes Emergency Medical Condition: Yes Medical Record Reviewed: Yes Differential Diagnosis Differential includes enteritis, colitis, C. difficile Narrative Course Patient was here 2 days ago and had no benefit from Lomotil. A test for C. difficile at that time was negative. We have given IV fluids. She has had 3 episodes of diarrhea while in the emergency department. White count is normal at 4.4. There 56% polys 30% lymphs. AST and ALTs slightly elevated. She does have a history of fatty liver CT scan of the abdomen and pelvis does not show an etiology for the diarrhea Diagnosis Primary Impression: Intractable diarrhea Adolph Gold MD Jul 03, 2017 10:56
[2017-07-03] MEDS ORDERED: SODIUM CHLOR 0.9% 1000 ML INJ 1,000 ML IV ONE ×2 (11:00)
[2017-07-03 11:16] LABS: AUTOMATED NEUTROPHIL # 2.5 TH/MM3 (1.8-7.7); BASOPHIL % 0.4 % (0.0-2.0); EOSINOPHIL # 0.1 TH/MM3 (0-0.4); EOSINOPHIL % 2.3 % (0.0-4.0); HEMOGLOBIN 13.8 GM/DL (11.6-15.3); LYMPH % 35.3 % (9.0-44.0); LYMPHOCYTE # 1.6 TH/MM3 (1.0-4.8); MEAN CELL VOLUME 87.7 FL (80.0-100.0); MEAN CORPUSCULAR HEMOGLOBIN 29.5 PG (27.0-34.0); MEAN CORPUSCULAR HGB CONC 33.6 % (32.0-36.0); MEAN PLATELET VOLUME 7.8 FL (7.0-11.0); MONO % 5.3 % (0.0-8.0); MONOCYTE # 0.2 TH/MM3 (0-0.9); NEUT % 56.7 % (16.0-70.0); PLATELET COUNT 251 TH/MM3 (150-450); RED BLOOD COUNT 4.67 MIL/MM3 (4.00-5.30); RED CELL DISTRIBUTION WIDTH 12.3 % (11.6-17.2); WHITE BLOOD COUNT 4.4 TH/MM3 (4.0-11.0)
[2017-07-03 11:17] LABS: BILIRUBIN, URINE NEG (NEG); BLOOD, URINE MOD (NEG); GLUCOSE,URINE NEG (NEG); KETONE, URINE NEG (NEG); NITRITE,URINE NEG (NEG); PH, URINE 5.5 (5.0-8.5); URINE LEUKOCYTE ESTERASE TRACE (NEG)
[2017-07-03 11:19] LABS: URINE COLOR YELLOW (YELLW/STRAW)
[2017-07-03 11:24] LABS: BACTERIA, URINE MOD /hpf; MUCUS URINE MANY /lpf (OCC); RBC, URINE 0-3 /hpf (0-3); SQUAMOUS EPITHELIAL CELL URINE 0-5 /hpf (0-5)
[2017-07-03 11:29] LABS: CHLORIDE 110 MEQ/L (98-107); SODIUM (NA) 141 MEQ/L (136-145)
[2017-07-03 11:33] LABS: ALBUMIN 3.5 GM/DL (3.4-5.0); BICARBONATE 23.8 MEQ/L (21.0-32.0); BLOOD UREA NITROGEN 18 MG/DL (7-18); CALCIUM 8.4 MG/DL (8.5-10.1); GLUCOSE,RANDOM 95 MG/DL (74-106); MAGNESIUM 2.2 MG/DL (1.5-2.5)
[2017-07-03 11:36] LABS: ALT (GPT) 111 U/L (10-53); AST (GOT) 48 U/L (15-37); GLOMERULAR FILTRATION RATE 87 ML/MIN (>89)
[2017-07-03 11:38] LABS: TOTAL BILIRUBIN ADULT 0.5 MG/DL (0.2-1.0); TOTAL PROTEIN 7.5 GM/DL (6.4-8.2)
[2017-07-03 11:39] LABS: ALKALINE PHOSPHATASE 71 U/L (45-117)
[2017-07-03] MEDS ORDERED: POTASSIUM CHLORIDE 20 MEQ CONTROLLED RELEASE TAB PO ONE (11:45)
[2017-07-03 11:50] VITALS: BP 125/79; PULSE 68; O2SAT 100
--- NOTE | 2017-07-03 12:32 | RADRPT ---
EXAM DATE/TIME: 07/03/2017 12:01 [place] COMPARISON: No previous studies available for comparison. INDICATIONS : Diarrhea for six days, fever. IV CONTRAST: 96 cc Omnipaque 350 (iohexol) IV ORAL CONTRAST: No oral contrast ingested. RADIATION DOSE: 21.74 CTDIvol (mGy) MEDICAL HISTORY : Hernia, hiatal. Gastroesophageal reflux disease. Diabetes mellitus type 2.Ovarian cysts, ischemic col itis. SURGICAL HISTORY : Colon resection. Hysterectomy.Discectomy, lumbar. ENCOUNTER: Initial ACUITY: 4 - 6 days PAIN SCALE: 0/10 LOCATION: Bilateral lower quadrant TECHNIQUE: Volumetric scanning of the abdomen and pelvis was performed. Using automated exposure control and ad justment of the mA and/or kV according to patient size, radiation dose was kept as low as reasonably achievable to obtain optimal diagnostic quality images. DICOM format image data is available electro nically for review and comparison. FINDINGS: Minimal scarring at the lung bases. Moderate fatty liver. Spleen, adrenals, kidneys and pancreas unre markable. No calcified gallstones or biliary ductal dilatation. There is no free fluid. No bowel obstruction. No adenopathy. No acute bony abnormality. Postoperative hysterectomy and previous fusion lower lumbar spine. CONCLUSION: 1. No acute findings on abdomen and pelvic CT. Stable fatty liver. Previous hysterectomy and lumbar s pine fusion Donavan Michaels MD on July 03, 2017 at 12:24 Board Certified Radiologist. This report was verified electronically.
[2017-07-03] MEDS ORDERED: SODIUM CHLORIDE 0.9% FLUSH 10 ML FLUSH IV FLUSH PRN (13:00)
[2017-07-03] MEDS ORDERED: NS + KCL 20 MEQ INJ 1,000 ML IV SCH (13:00)
[2017-07-03] MEDS ORDERED: ACETAMINOPHEN 325 MG TAB PO PRN (13:00)
[2017-07-03] MEDS ORDERED: NALOXONE HCL 0.4 MG/ML AMP IV PUSH PRN (13:00)
[2017-07-03] MEDS ORDERED: SENNOSIDES 8.6 MG TAB PO PRN (13:00)
[2017-07-03] MEDS: SODIUM CHLOR 0.9% 1000 ML INJ 1,000 ML IV SCH ×2 (13:14→22:59)
[2017-07-03 14:54] VITALS: BP 131/83; PULSE 76; O2SAT 100
--- NOTE | 2017-07-03 15:11 | HHI.HP ---
[facility] Service [facility] Primary Care Physician Fito Marroquin MD Admission Diagnosis INTRACTABLE DIARHEA Diagnoses: Chief Complaint: Diarrhea with dizziness Travel History International Travel<30 Days: No Contact w/Intl Traveler <30 Da: No Traveled to Known Affected Are: No History of Present Illness This patient is a very pleasant 52-year-old female with a history of "prediabetes "and recently started metformin. Patient reports increased lightheadedness and dizziness as well as subjective fever with recurrent loose stools. She has stools which are worse at night they are foul-smelling and bulky. There is no bleeding. There is no oiliness. Patient has not any negro fevers. She did come to the emergency room several days ago and a C. difficile test was negative. She does also report a history of ischemic colitis, diverticular disease and multiple bowel surgeries. Patient says that she has not really had any abdominal pain only discomfort due to frequent stools. She has had at least 8 stools in the last 12 hours. She has reported some nausea and dizziness. His chronically elevated LFTs due to fatty liver which has been under follow-up with her framing consultant. Because of the severe diarrhea and dizziness and anorexia the patient is recommended for observation Review of Systems Constitutional: COMPLAINS OF: Dizziness, DENIES: Diaphoretic episodes, Fatigue , Fever, Weight gain, Weight loss, Chills, Change in appetite, Night Sweats Endocrine: DENIES: Abnorml menstrual pattern, Heat/cold intolerance, Polydipsia , Polyuria, Polyphagia Eyes: DENIES: Blurred vision, Diplopia, Eye inflammation, Eye pain, Vision loss , Photosensitivity, Double Vision Ears, nose, mouth, throat: DENIES: Tinnitus, Hearing loss, Vertigo, Nasal discharge, Oral lesions, Throat pain, Hoarseness, Ear Pain, Running Nose, Epistaxis, Sinus Pain, Toothache, Odynophagia Respiratory: DENIES: Apneas, Cough, Snoring, Wheezing, Hemoptysis, Sputum production, Shortness of breath Cardiovascular: DENIES: Chest pain, Palpitations, Syncope, Dyspnea on Exertion , PND, Lower Extremity Edema, Orthopnea, Claudication Gastrointestinal: COMPLAINS OF: Diarrhea, Nausea, DENIES: Abdominal pain, Black stools, Bloody stools, Constipation, Vomiting, Difficulty Swallowing, Anorexia Musculoskeletal: DENIES: Joint pain, Muscle aches, Stiffness, Joint Swelling, Back pain, Neck pain Integumentary: DENIES: Abnormal pigmentation, Pruritus, Rash, Nail changes, Breast masses, Breast skin changes, Nipple discharge Hematologic/lymphatic: DENIES: Bruising, Lymphadenopathy Immunologic/allergic: DENIES: Eczema, Urticaria Psychiatric: DENIES: Anxiety, Confusion, Mood changes, Depression, Hallucinations, Agitation, Suicidal Ideation, Homicidal Ideation, Delusions Except as stated in HPI: all other systems reviewed are Neg Past Family Social History Past Medical History Prediabetes, history of brain tumor, history of PMR, recently discontinued prednisone by taper per her neurologist Dr. Pena Fatty liver with chronically elevated LFTs Past Surgical History Hernia repair 2, laparoscopic lysis of adhesion Ovarian cyst Hysterectomy Colon surgery Reported Medications Reviewed in the EMR, has been on metformin for 6 months and 6 months ago stopped prednisone Intermittent Tylenol for pain Allergies: Coded Allergies: penicillin G (Unverified Allergy, Severe, HIVES, 07/03/17) Active Ordered Medications Reviewed in the EMR Family History Mother and father both had colon cancer Social History No tobacco or alcohol dependency, employed, lives alone Physical Exam Vital Signs Vital Signs Date Time Temp Pulse Resp B/P (MAP) Pulse Ox O2 Delivery O2 Flow Rate FiO2 07/03/17 14:54 76 131/83 (99) 100 07/03/17 11:50 68 125/79 (94) 100 07/03/17 10:26 98.0 71 16 138/73 (94) 99 Physical Exam GENERAL: This is a well-nourished, well-developed patient, in no apparent distress. SKIN: No rashes, ecchymoses or lesions. Cool and dry. HEAD: Atraumatic. Normocephalic. No temporal or scalp tenderness. EYES: Pupils equal round and reactive. Extraocular motions intact. No scleral icterus. No injection or drainage. ENT: Nose without bleeding, purulent drainage or septal hematoma. Throat without erythema, tonsillar hypertrophy or exudate. Uvula midline. Airway patent. NECK: Trachea midline. No JVD or lymphadenopathy. Supple, nontender, no meningeal signs. CARDIOVASCULAR: Regular rate and rhythm without murmurs, gallops, or rubs. RESPIRATORY: Clear to auscultation. Breath sounds equal bilaterally. No wheezes , rales, or rhonchi. GASTROINTESTINAL: Abdomen soft, non-tender, nondistended. No hepato-splenomegaly , or palpable masses. No guarding. MUSCULOSKELETAL: Extremities without clubbing, cyanosis, or edema. No joint tenderness, effusion, or edema noted. No calf tenderness. Negative Homans sign bilaterally. NEUROLOGICAL: Awake and alert. Cranial nerves II through XII intact. Motor and sensory grossly within normal limits. Five out of 5 muscle strength in all muscle groups. Normal speech. Laboratory Laboratory Tests Test 07/03/17 11:10 White Blood Count 4.4 Red Blood Count 4.67 Hemoglobin 13.8 Hematocrit 41.0 Mean Corpuscular Volume 87.7 Mean Corpuscular Hemoglobin 29.5 Mean Corpuscular Hemoglobin Concent 33.6 Red Cell Distribution Width 12.3 Platelet Count 251 Mean Platelet Volume 7.8 Neutrophils (%) (Auto) 56.7 Lymphocytes (%) (Auto) 35.3 Monocytes (%) (Auto) 5.3 Eosinophils (%) (Auto) 2.3 Basophils (%) (Auto) 0.4 Neutrophils # (Auto) 2.5 Lymphocytes # (Auto) 1.6 Monocytes # (Auto) 0.2 Eosinophils # (Auto) 0.1 Basophils # (Auto) 0.0 CBC Comment DIFF FINAL Differential Comment Urine Collection Type CLEAN CATCH Urine Color YELLOW Urine Turbidity CLEAR Urine pH 5.5 Urine Specific [place] 1.025 Urine Protein NEG Urine Glucose (UA) NEG Urine Ketones NEG Urine Occult Blood MOD Urine Nitrite NEG Urine Bilirubin NEG Urine Leukocyte Esterase TRACE Urine RBC 0-3 Urine WBC 3-5 Urine Squamous Epithelial Cells 0-5 Urine Bacteria MOD Urine Granular Casts 0-2 Urine Mucus MANY Microscopic Urinalysis Comment CULTURE INDICATED Blood Urea Nitrogen 18 Creatinine 0.70 Random Glucose 95 Total Protein 7.5 Albumin 3.5 Calcium Level 8.4 Magnesium Level 2.2 Alkaline Phosphatase 71 Aspartate Amino Transf (AST/SGOT) 48 Alanine Aminotransferase (ALT/SGPT) 111 Total Bilirubin 0.5 Sodium Level 141 Potassium Level 3.5 Chloride Level 110 Carbon Dioxide Level 23.8 Anion Gap 7 Estimat Glomerular Filtration Rate 87 Date/Time Source Procedure Growth Status 07/03/17 12:26 Stool Stool Cryptosporidium Exam Pending Received 07/03/17 12:26 Stool Stool Stool Pus (WILIAM) Pending Received 07/03/17 12:26 Stool Stool Giardia Antigen (WILIAM) Pending Received 07/03/17 11:10 Urine Clean Catch Urine Culture Pending Received Result Diagram: 07/03/17 1110 07/03/17 1110 Imaging Last Impressions Abdomen/Pelvis CT 07/03/17 1046 Signed Impressions: Service Date/Time: June 12:01 - CONCLUSION: 1. No acute findings on abdomen and pelvic CT. Stable fatty liver. Previous hysterectomy and lumbar spine fusion Donavan Michaels MD Assessment and Plan Problem List: (1) Intractable diarrhea ICD Code: R19.7 - Diarrhea, unspecified Status: Acute Plan: Etiology unclear but likely medication related. Will discontinue metformin and follow-up stool studies as ordered by the emergency room team Follow-up with GI: She follows up with for a history of GERD, ischemic colitis and diverticular disease. Patient is quite dizzy and will require IV hydration and gentle advancement of diet add questran (2) Fatty liver ICD Code: K76.0 - Fatty (change of) liver, not elsewhere classified Plan: With chronically elevated transaminases No further workup indicated at this time Code Status full code Discussed Condition With Patient, ER MD Bennett,Yessi Gregg MD Jul 03, 2017 15:11
[2017-07-03 16:25] VITALS: PULSE 69; RESP 16; TEMP 96.2; O2SAT 100
[2017-07-03 17:13] VITALS: BP 121/84
--- NOTE | 2017-07-03 19:16 | PD.CONS ---
HPI History of Present Illness This is a 52 year old female who was admitted to the hospital with history of fever headache and watery diarrhea. The symptoms started last Friday. She continues to have watery diarrhea in spite of treatment with cholestyramine. She denies any history of heartburn dysphagia nausea vomiting constipation hematemesis or melena hematochezia jaundice pruritus ascites edema anorexia or weight loss. Patient was recently started on metformin for diagnosis of prediabetic status. The diarrhea has persisted in spite of stopping metformin. Past history significant for ischemic colitis. Colonoscopy done last year failed to reveal any changes of colitis. She was found to have benign colon polyps. [facility] Past Medical History Prediabetes, history of brain tumor, history of PMR, recently discontinued prednisone by taper per her neurologist Dr. Pena Fatty liver with chronically elevated LFTs Benign colon polyps Ischemic colitis Past Surgical History Hernia repair 2, laparoscopic lysis of adhesion Ovarian cyst Hysterectomy Colon surgery Coded Allergies: penicillin G (Unverified Allergy, Severe, HIVES, 07/03/17) Medications Current medication list reviewed in the MAR Family History Mother and father both had colon cancer Social History No tobacco, IV drug use or alcohol dependency, employed, lives alone Review of Systems Constitutional: COMPLAINS OF: Fever Gastrointestinal: COMPLAINS OF: Diarrhea, DENIES: Abdominal pain, Black stools , Bloody stools, Constipation, Nausea, Vomiting, Difficulty Swallowing, Anorexia , Odynophagia, Swelling of Abdomen, Heartburn, Hematemesis GI Exam Vitals I&O Vital Signs Date Time Temp Pulse Resp B/P (MAP) Pulse Ox O2 Delivery O2 Flow Rate FiO2 07/03/17 17:13 121/84 (96) 07/03/17 16:40 07/03/17 16:25 96.2 69 16 100 07/03/17 14:54 76 131/83 (99) 100 07/03/17 11:50 68 125/79 (94) 100 07/03/17 10:26 98.0 71 16 138/73 (94) 99 I/O 07/02/17 07/02/17 07/02/17 07/03/17 07/03/17 07/03/17 07:00 15:00 23:00 07:00 15:00 23:00 Intake Total 1400 ml 240 ml Balance 1400 ml 240 ml Intake Oral 240 ml IV Total 1400 ml # Voids 3 Laboratory Test 07/03/17 11:10 White Blood Count 4.4 TH/MM3 Red Blood Count 4.67 MIL/MM3 Hemoglobin 13.8 GM/DL Hematocrit 41.0 % Mean Corpuscular Volume 87.7 FL Mean Corpuscular Hemoglobin 29.5 PG Mean Corpuscular Hemoglobin Concent 33.6 % Red Cell Distribution Width 12.3 % Platelet Count 251 TH/MM3 Mean Platelet Volume 7.8 FL Neutrophils (%) (Auto) 56.7 % Lymphocytes (%) (Auto) 35.3 % Monocytes (%) (Auto) 5.3 % Eosinophils (%) (Auto) 2.3 % Basophils (%) (Auto) 0.4 % Neutrophils # (Auto) 2.5 TH/MM3 Lymphocytes # (Auto) 1.6 TH/MM3 Monocytes # (Auto) 0.2 TH/MM3 Eosinophils # (Auto) 0.1 TH/MM3 Basophils # (Auto) 0.0 TH/MM3 CBC Comment DIFF FINAL Differential Comment Urine Collection Type CLEAN CATCH Urine Color YELLOW Urine Turbidity CLEAR Urine pH 5.5 Urine Specific Marshall 1.025 Urine Protein NEG mg/dL Urine Glucose (UA) NEG mg/dL Urine Ketones NEG mg/dL Urine Occult Blood MOD Urine Nitrite NEG Urine Bilirubin NEG Urine Leukocyte Esterase TRACE Urine RBC 0-3 /hpf Urine WBC 3-5 /hpf Urine Squamous Epithelial Cells 0-5 /hpf Urine Bacteria MOD /hpf Urine Granular Casts 0-2 /lpf Urine Mucus MANY /lpf Microscopic Urinalysis Comment CULTURE INDICATED Blood Urea Nitrogen 18 MG/DL Creatinine 0.70 MG/DL Random Glucose 95 MG/DL Total Protein 7.5 GM/DL Albumin 3.5 GM/DL Calcium Level 8.4 MG/DL Magnesium Level 2.2 MG/DL Alkaline Phosphatase 71 U/L Aspartate Amino Transf (AST/SGOT) 48 U/L Alanine Aminotransferase (ALT/SGPT) 111 U/L Total Bilirubin 0.5 MG/DL Sodium Level 141 MEQ/L Potassium Level 3.5 MEQ/L Chloride Level 110 MEQ/L Carbon Dioxide Level 23.8 MEQ/L Anion Gap 7 MEQ/L Estimat Glomerular Filtration Rate 87 ML/MIN Date/Time Source Procedure Growth Status 07/03/17 12:26 Stool Stool Cryptosporidium Exam Pending Resulted 07/03/17 12:26 Stool Stool Stool Pus (WILIAM) - Final RARE WBC Resulted 07/03/17 12:26 Stool Stool Giardia Antigen ([facility]ILIAM) Pending Resulted 07/03/17 11:10 Urine Clean Catch Urine Culture Pending Received Physical Examination HEENT: Pupils round and reactive to light; normocephalic; atraumatic; no jaundice. Throat is clear. NECK: Neck is supple, no JVD, no lymphadenopathy. CHEST: Chest is clear to auscultation and percussion. CARDIAC: Regular rate and rhythm with no murmur gallop or rubs. ABDOMEN: Soft, nondistended, nontender; no hepatosplenomegaly; bowel sounds are present in all four quadrants. EXTREMITIES: No clubbing, cyanosis, or edema. SKIN: Normal; no rash; no jaundice. PRODUCTION HARDENER: No focal deficits; alert and oriented times three. Assessment and Plan Assessment: (1) GERD (gastroesophageal reflux disease) ICD Codes: K21.9 - GERD (gastroesophageal reflux disease) Status: Acute (2) Intractable diarrhea ICD Codes: R19.7 - Diarrhea, unspecified Status: Acute (3) Colon polyps ICD Codes: K63.5 - Polyp of colon (4) Ischemic colitis ICD Codes: K55.9 - Vascular disorder of intestine, unspecified Plan 1. Patient's acute diarrhea is likely related to intercurrent infection. Recommend stools for C. difficile toxin ova parasite and cultures, labs including IBD panel , celiac panel and CRP 2. Empiric treatment with antibiotics i.e. metronidazole and ciprofloxacin. 3. Currently no need for endoscopic evaluation Brian Palma MD Jul 03, 2017 19:16
[2017-07-03 20:00] VITALS: BP 112/62; PULSE 60; RESP 20; TEMP 96.6; O2SAT 98
[2017-07-03] MEDS: metroNIDAZOLE 500 MG TAB PO SCH (20:23)
[2017-07-03] MEDS: CIPROFLOXACIN 500 MG TAB PO SCH (20:23)
[2017-07-03] MEDS: SODIUM CHLORIDE 0.9% FLUSH 10 ML FLUSH IV FLUSH SCH (20:23)
[2017-07-03] MEDS: CHOLESTYRAMINE 4 GM PACKET PO SCH (20:23)
[2017-07-04] VITALS: BP 116/69; PULSE 65; RESP 20; TEMP 96.5; O2SAT 98
[2017-07-04 05:46] LABS: BASOPHIL % 0.8 % (0.0-2.0); EOSINOPHIL # 0.1 TH/MM3 (0-0.4); HEMATOCRIT 35.5 % (35.0-46.0); HEMOGLOBIN 11.7 GM/DL (11.6-15.3); LYMPH % 46.2 % (9.0-44.0); LYMPHOCYTE # 2.1 TH/MM3 (1.0-4.8); MEAN CELL VOLUME 88.4 FL (80.0-100.0); MEAN CORPUSCULAR HGB CONC 32.8 % (32.0-36.0); MEAN PLATELET VOLUME 8.5 FL (7.0-11.0); MONO % 7.6 % (0.0-8.0); MONOCYTE # 0.4 TH/MM3 (0-0.9); NEUT % 43.4 % (16.0-70.0); PLATELET COUNT 198 TH/MM3 (150-450); RED BLOOD COUNT 4.01 MIL/MM3 (4.00-5.30); RED CELL DISTRIBUTION WIDTH 12.1 % (11.6-17.2); WHITE BLOOD COUNT 4.6 TH/MM3 (4.0-11.0)
[2017-07-04 05:58] LABS: CHLORIDE 112 MEQ/L (98-107); SODIUM (NA) 144 MEQ/L (136-145)
[2017-07-04 06:02] LABS: CALCIUM 7.9 MG/DL (8.5-10.1)
[2017-07-04 06:10] LABS: ALBUMIN 2.9 GM/DL (3.4-5.0); ALKALINE PHOSPHATASE 54 U/L (45-117); ALT (GPT) 79 U/L (10-53); AST (GOT) 28 U/L (15-37); BICARBONATE 26.5 MEQ/L (21.0-32.0); BLOOD UREA NITROGEN 14 MG/DL (7-18); CREATININE 0.67 MG/DL (0.50-1.00); GLOMERULAR FILTRATION RATE 92 ML/MIN (>89); GLUCOSE,RANDOM 100 MG/DL (74-106); TOTAL BILIRUBIN ADULT 0.5 MG/DL (0.2-1.0)
[2017-07-04] MEDS: metroNIDAZOLE 500 MG TAB PO SCH ×2 (06:12→13:51)
[2017-07-04 08:00] VITALS: BP 117/72; PULSE 62; RESP 16; TEMP 96; O2SAT 98
[2017-07-04] MEDS: SODIUM CHLOR 0.9% 1000 ML INJ 1,000 ML IV SCH (08:59)
[2017-07-04] MEDS ORDERED: PANTOPRAZOLE SOD 40 MG DELAYED RELEASE TAB PO SCH (09:00)
[2017-07-04] MEDS: SODIUM CHLORIDE 0.9% FLUSH 10 ML FLUSH IV FLUSH SCH (09:00)
--- NOTE | 2017-07-04 09:42 | HHI.PR ---
Subjective Remarks Follow-up intractable diarrhea. Patient seen and examined, lying in bed comfortably. Patient states she had 3 bouts of diarrhea overnight, has been slowing down. Has been tolerating p.o. intake, denies any abdominal pain, nausea or vomiting. Afebrile. Vital signs are stable. Awaiting stool studies and appreciate gastroenterology input. Likely discharge today if stool studies are negative. Objective Vitals Vital Signs Date Time Temp Pulse Resp B/P (MAP) Pulse Ox O2 Delivery O2 Flow Rate FiO2 07/04/17 00:00 96.5 65 20 116/69 (85) 98 07/03/17 20:00 96.6 60 20 112/62 (79) 98 07/03/17 17:13 121/84 (96) 07/03/17 16:40 07/03/17 16:25 96.2 69 16 100 07/03/17 14:54 76 131/83 (99) 100 07/03/17 11:50 68 125/79 (94) 100 07/03/17 10:26 98.0 71 16 138/73 (94) 99 I/O 07/03/17 07/03/17 07/03/17 07/04/17 07/04/17 07/04/17 07:00 15:00 23:00 07:00 15:00 23:00 Intake Total 1400 ml 240 ml 1400 ml Balance 1400 ml 240 ml 1400 ml Intake Oral 240 ml 1400 ml IV Total 1400 ml # Voids 3 3 # Bowel Movements 1 Result Diagram: 07/04/17 0500 07/04/17 0500 Imaging Last Impressions Abdomen/Pelvis CT 07/03/17 1046 Signed Impressions: Service Date/Time: June 12:01 - CONCLUSION: 1. No acute findings on abdomen and pelvic CT. Stable fatty liver. Previous hysterectomy and lumbar spine fusion Donavan Michaels MD Objective Remarks GENERAL: Well-developed, well-nourished patient in NAD. SKIN: Warm and dry. No rash. HEAD: Normocephalic. Atraumatic. EYES: Pupils equal and round. No scleral icterus. No injection or drainage. ENT: No nasal bleeding or discharge. Mucous membranes pink and moist. NECK: Supple. Trachea midline. CARDIOVASCULAR: Regular rate and rhythm. S1, S2 noted. No murmur appreciated. RESPIRATORY: No accessory muscle use. Clear to auscultation. Breath sounds equal bilaterally. GASTROINTESTINAL: Abdomen soft, non-tender, nondistended. Normoactive bowel sounds x4. MUSCULOSKELETAL: No obvious deformities. Extremities without clubbing, cyanosis , or edema. NEUROLOGICAL: Awake and alert. No obvious cranial nerve deficits. Motor grossly within normal limits. 5/5 muscle strength in bilateral upper and lower extremities. Normal speech. PSYCHIATRIC: Appropriate mood and affect; insight and judgment normal. A/P Problem List: (1) Intractable diarrhea ICD Code: R19.7 - Diarrhea, unspecified Status: Acute Plan: Etiology unclear but likely medication related. Will discontinue metformin and follow-up stool studies. Still pending. Awaiting C. difficile. Follow-up with GI: She follows up with for a history of GERD, ischemic colitis and diverticular disease. Appreciate GI recommendations, currently no need for endoscopic evaluation. Continue IV antibiotics. Dizziness resolved. Continue IV hydration for now. Tolerating p.o. intake. Continue to monitor. Continue Questran. (2) Fatty liver ICD Code: K76.0 - Fatty (change of) liver, not elsewhere classified Plan: With chronically elevated transaminases. No further workup indicated at this time. Discharge Planning Patient reassessed at 1730, patient has no further diarrhea all day. Tolerating p.o. intake, denies any abdominal pain, nausea or vomiting. Patient states she feels at her baseline. Patient states she has a follow-up appointment with gastroenterology in about a week, encouraged to follow-up with GI and follow lab work. We will continue antibiotics upon discharge. Follow- up with PCP, metformin DC'd, placed on extended release Metformin with dinner, assess response. Have PCP follow-up. Patient encouraged to return to the ED if symptoms persist or worsen. Patient is stable at this time and agreeable to the plan Roma Maloney Jul 04, 2017 09:42
[2017-07-04] MEDS: CIPROFLOXACIN 500 MG TAB PO SCH (10:30)
[2017-07-04] MEDS: CHOLESTYRAMINE 4 GM PACKET PO SCH (10:31)
[2017-07-04 12:00] VITALS: BP 118/73; PULSE 68; RESP 16; TEMP 96.5; O2SAT 97
[2017-07-04 16:00] VITALS: BP 115/65; PULSE 60; TEMP 96.3; O2SAT 98
[2017-07-04] MEDS ORDERED: METR-1 PO (17:48)
[2017-07-04] MEDS ORDERED: METF500T4 PO (17:48)
[2017-07-04] MEDS ORDERED: CHOL4POW4 PO (17:48)
[2017-07-04] MEDS ORDERED: CIPR-9 PO (17:48)
--- NOTE | 2017-07-04 17:48 | HHI.DCPOC ---
Discharge Care Plan Diagnosis: (1) Hyperlipidemia (2) Intractable diarrhea (3) GERD (gastroesophageal reflux disease) (4) Abdominal pain Goals to Promote Your Health * To prevent worsening of your condition and complications * To maintain your health at the optimal level Directions to Meet Your Goals Take your medications as prescribed Follow your dietary instruction Follow activity as directed Keep your appointments as scheduled Take your immunizations and boosters as scheduled If your symptoms worsen call your PCP, if no PCP go to Urgent Care Center or Emergency Room Smoking is Dangerous to Your Health. Avoid second hand smoke Call the 24-hour hour crisis hotline for domestic abuse at Roma Maloney Jul 04, 2017 17:48
[2017-07-04] MEDS ORDERED: BACT800T5 PO (17:53)
[2017-07-09 15:54] LABS: ENDOMYSIAL AB SCREEN ND (NEGATIVE); ENDOMYSIAL AB TITER ND (<1:5)
== END 2017-07-04 18:30 | disposition home or self-care (01) ==
LOC: PHED 10:24 → PHEDA 13:04 → PH3A 16:27
PROVIDERS: ADMIT Hospitalist; ATTEND Hospitalist
DX: R19.7 Diarrhea, unspecified (principal); K55.9 Vascular disorder of intestine, unspecified; R63.0 Anorexia; R11.0 Nausea; R51 Headache; R42 Dizziness and giddiness; R50.9 Fever, unspecified; R10.9 Unspecified abdominal pain; E11.9 Type 2 diabetes mellitus without complications; E78.00 Pure hypercholesterolemia, unspecified; K21.9 Gastro-esophageal reflux disease without esophagitis; K76.0 Fatty (change of) liver, not elsewhere classified; G47.30 Sleep apnea, unspecified; M54.9 Dorsalgia, unspecified; G89.29 Other chronic pain; R74.0 Nonspecific elevation of levels of transaminase and lactic acid dehydrogenase [LDH]; E78.5 Hyperlipidemia, unspecified; M19.90 Unspecified osteoarthritis, unspecified site; Z98.1 Arthrodesis status; Z90.710 Acquired absence of both cervix and uterus; Z79.4 Long term (current) use of insulin
CPT/HCPCS: 74177; 80053; 81001; 82784; 83516; 83735; 85025; 86140; 87077; 87086; 87186; 87205; 87328; 87329; 87425; 87506; 96360; 96361; 99285; G0378; J7030; Q9967